=== PATIENT | male | born 1985 | race African-American/Black ===

== ENCOUNTER 2016-10-06 07:47 | Emergency (ER) | payer MEDICAID ==
[~2016-10-06] VITALS: Ht 182.9 cm; Wt 104.3 kg
[2016-10-06 08:00] VITALS: BP 141/91
[2016-10-06] MEDS ORDERED: IBUPROFEN 800 MG TAB PO ONE (08:30)
== END 2016-10-06 09:09 | disposition home or self-care (01) ==
LOC: ER 07:47
DX: S82.002A Unspecified fracture of left patella, initial encounter for closed fracture (principal); F17.210 Nicotine dependence, cigarettes, uncomplicated; Y04.0XXA Assault by unarmed brawl or fight, initial encounter; Y93.89 Activity, other specified; Y99.8 Other external cause status; Y92.89 Other specified places as the place of occurrence of the external cause
CPT/HCPCS: 29505; 73562